=== PATIENT | male | born 1990 | race Caucasian/White ===

== ENCOUNTER 2018-11-26 10:27 | Emergency (ER) | payer OTHER ==
[2018-11-26] MEDS ORDERED: Pepcid 20 MG VIAL IV ONE ×2 (10:49→10:51)
[2018-11-26] MEDS ORDERED: Sodium Chloride 0.9% 1000 ML 1,000 ML IV STA (10:49)
[2018-11-26] MEDS ORDERED: PROTONIX 40 MG IV IV ONE ×2 (10:49→10:50)
[2018-11-26] MEDS ORDERED: Zofran 4 MG/2 ML VIAL ONE (10:50)
[2018-11-26] MEDS ORDERED: Sodium Chloride 0.9% 1000 ML 1,000 ML ONE (10:50)
[2018-11-26] MEDS ORDERED: APRESOLINE 20 MG/ML INJ IV ONE (10:51)
[2018-11-26] MEDS ORDERED: Zofran 4 MG/2 ML VIAL IV ONE (10:51)
[2018-11-26 11:03] LABS: BASOPHIL % 0.2 % (0.0-0.4); Basophil (Absolute #) 0.03 (0-0.4); Eosinophil % 0.2 % (0.00-5.0); Eosinophil (Absolute #) 0.03 (0-0.5); Granulocyte Absolute (ANC) 11.46 (1.4-6.9); Hematocrit 44.2 % (42-50); Hemoglobin 15.1 gm/dl (12.5-18.0); Lymphocyte (Absolute #) 1.41 (1.0-4.6); Lymphocytes % 10.6 % (24.0-44.0); Mean Cell Volume 93.4 fl (78-100); Mean Corpuscular Hemoglobin 31.9 pg (26-32); Mean Corpuscular Hgb Concent. 34.2 g/dl (32-36); Mean Platelet Volume 9.7 fl (6-9.5); Platelet Count 346 K/mm3 (150-450); Red Blood Count 4.73 M/mm3 (4.1-5.6); Red Cell Distribution Width 12.6 % (11.5-14.0); White Blood Count 13.3 K/mm3 (4.0-10.5)
[2018-11-26 11:11] LABS: ALBUMIN 4.3 g/dL (3.5-5.0); ALKALINE PHOSPHATASE 97 U/L (38-126); ANION GAP 10.6 MEQ/L (5-15); BLOOD UREA NITROGEN 14 mg/dL (9-20); CHLORIDE 100 mmol/L (98-107); Calcium 9.5 mg/dL (8.4-10.2); Carbon Dioxide 34 mmol/L (22-30); Creatinine 1 0.91 mg/dL (0.66-1.25); Glucose 125 mg/dL (74-106); LIPASE 39 U/L (23-300); Potassium 3.8 mmol/L (3.5-5.1); SGOT/AST 33 U/L (17-59); SGPT/ALT 42 U/L (0-50); SODIUM 141 mmol/L (137-145); Total Protein 7.2 g/dL (6.3-8.2)
[2018-11-26 11:22] LABS: Amourphous Crystal FEW /HPF (NEGATIVE); Appearance CLOUDY (CLEAR); Bacteria RARE /HPF (NEGATIVE); Bilirubin NEGATIVE (NEGATIVE); Blood NEGATIVE Ery/ul (0-5); Glucose NEGATIVE (NEGATIVE); Ketones NEGATIVE (NEGATIVE); Leukocyte Esterase NEGATIVE (NEGATIVE); Mucus SLIGHT /HPF (NEGATIVE); Nitrite NEGATIVE (NEGATIVE); Protein,Urine Dip NEGATIVE (Negative); Specific Gravity 1.015 (1.005-1.025); Urobilinogen NEGATIVE mg/dL (0-1)
[2018-11-26 11:36] LABS: Barbiturate,Urine NEGATIVE (NEGATIVE); Benzodiazepine,Urine NEGATIVE (NEGATIVE); Cocaine,Urine NEGATIVE (NEGATIVE); Methadone,Urine NEGATIVE (NEGATIVE); Opiate,Urine NEGATIVE (NEGATIVE); PCP,Urine NEGATIVE (NEGATIVE); THC,Urine NEGATIVE (NEGATIVE)
[2018-11-26] MEDS ORDERED: APRESOLINE 20 MG/ML INJ ONE (11:41)
[2018-11-26 11:59] VITALS: BP 174/100; O2SAT 98
[2018-11-26 12:12] LABS: Amphetamine,Urine POSITIVE (NEGATIVE)
[2018-11-26 12:51] VITALS: PULSE 76
--- NOTE | 2018-11-26 12:58 | XRAY ---
Indication: Abdomen pain and vomiting. Multiple contiguous axial images obtained through the abdomen and pelvis without contrast as ordered. Comparison: None Study slightly degraded by respiration artifact even with repeat CT. Lung bases are clear. Heart is not enlarged. Noncontrasted stomach and bowel loops appear nonobstructed. Normal appendix. No free fluid/air. Remaining liver, gallbladder, pancreas, spleen, adrenal glands, kidneys, ureters, bladder, and aorta appear unremarkable for noncontrast exam. Osseous structures intact. No ventral or inguinal hernias. Impression: 1. Mild respiration artifact. 2. CT abdomen/pelvis without contrast exam is grossly negative. CT DI 10.73
--- NOTE | 2018-11-26 13:04 | ERPHSYRPT ---
- History of Present Illness Historian: patient Exam Limitations: no limitations Patient Subjective Stated Complaint: Pt states "I ate penitentiary food yesterday and at 2 am this morning I started to have pain in my belly. I really hurt now." Triage Nursing Assessment: Pt presented through the front, alert and oriented X 3, skin pwd. Pt ambulates with an hunched over gait holding his abdomen. Pt grunting and moaing. Physician History: Pt is a 28 y/o male that presented to the ED with severe abdominal pain and vomiting. Pt denies diarrhea. Pt denies F/C/S. He states, no istory of HTN and no meds that he s taking on a regular basis. Pt denies SOB or cough. No dysuria, frequency and urgency. Pt is now on "work-release", and he is eating in penitentiary. Since he started having "penitentiary-food" he developed abdominal pain and vomiting. Timing/Duration: today Activities at Onset: none Quality: cramping, sharpness, stabbing Abdominal Pain Onset Location: epigastric Pain Radiation: no radiation Severity of Pain-Max: severe Severity of Pain-Current: moderate Modifying Factors: Improves With: nothing Associated Symptoms: vomiting Previous symptoms: no prior history Allergies/Adverse Reactions: No Known Drug Allergies Allergy (Verified 08/28/15 08:59) Hx Tetanus, Diphtheria Vaccination/Date Given: Yes Hx Influenza Vaccination/Date Given: No Hx Pneumococcal Vaccination/Date Given: No Immunizations Up to Date: Yes - Review of Systems Constitutional: No Fever, No Chills Eyes: No Symptoms Ears, Nose, & Throat: No Symptoms Respiratory: No Cough, No Dyspnea Cardiac: No Chest Pain, No Edema, No Syncope Abdominal/Gastrointestinal: Abdominal Pain (epigastric), Vomiting Genitourinary Symptoms: No Dysuria Musculoskeletal: No Back Pain, No Neck Pain Neurological: No Dizziness, No Focal Weakness, No Sensory Changes - Past Medical History Pertinent Past Medical History: Yes Other Medical History: ADHD - Past Surgical History Past Surgical History: Yes Other Surgical History: FACIAL SURG FROM [facility] - Social History Smoking Status: Current every day smoker How long have you smoked: years Exposure to second hand smoke: Yes Drug Use: none Patient Lives Alone: No - Nursing Vital Signs Nursing Vital Signs: Initial Vital Signs Temperature 98.0 F 11/26/18 10:31 Pulse Rate 58 L 11/26/18 10:31 Respiratory Rate 18 11/26/18 10:31 Blood Pressure 188/101 11/26/18 10:31 O2 Sat by Pulse Oximetry 99 11/26/18 10:31 Pain Scale Pain Intensity 4 - Physical Exam General Appearance: moderate distress Eye Exam: PERRL/EOMI, eyes nml inspection Ears, Nose, Throat Exam: normal ENT inspection, pharynx normal, moist mucous membranes Neck Exam: normal inspection, non-tender, supple, full range of motion Respiratory Exam: normal breath sounds, lungs clear, No respiratory distress Cardiovascular Exam: regular rate/rhythm, normal heart sounds Gastrointestinal/Abdomen Exam: soft, tenderness (epigastric), No mass Back Exam: normal inspection, normal range of motion, No CVA tenderness, No vertebral tenderness Extremity Exam: normal inspection, normal range of motion, pelvis stable Neurologic Exam: alert, oriented x 3, cooperative, normal mood/affect, nml cerebellar function, sensation nml, No motor deficits SpO2: 98 - Course Nursing assessment & vital signs reviewed: Yes - CT Exams Abdomen/Pelvis CT Interpretation: Negative (exam is grossly negative) Ordered Tests: Active Orders 24 hr Category Date Time Status ABDOMEN AND PELVIS W/0 CONTRAS [CT] Stat Exams 11/26/18 12:08 Completed CBC W DIFF Stat Lab 11/26/18 10:59 Completed CMP Stat Lab 11/26/18 10:59 Completed LIPASE Stat Lab 11/26/18 10:59 Completed Lactic Acid Stat Lab 11/26/18 10:49 Completed UA W/RFX UR CULTURE Stat Lab 11/26/18 10:49 Completed Urine Triage Profile Stat Lab 11/26/18 10:49 Completed Medication Summary Discontinued Medications Generic Name Dose Route Start Last Admin Trade Name Alvarez PRN Reason Stop Dose Admin Famotidine 40 mg 11/26/18 10:49 11/26/18 11:00 Pepcid 20 Mg Vial IV 11/26/18 10:50 40 mg STAT ONE Administration Famotidine Confirm 11/26/18 10:51 Pepcid 20 Mg Vial Administered 11/26/18 10:52 Dose 40 mg IV .STK-MED ONE Hydralazine HCl 10 mg 11/26/18 10:51 11/26/18 11:42 Apresoline 20 Mg/Ml Inj IV 11/26/18 10:52 10 mg STAT ONE Administration Hydralazine HCl Confirm 11/26/18 11:41 Apresoline 20 Mg/Ml Inj Administered 11/26/18 11:42 Dose 20 mg .ROUTE .STK-MED ONE Sodium Chloride 1,000 mls @ 999 mls/hr 11/26/18 10:49 11/26/18 12:37 Sodium Chloride 0.9% 1000 Ml IV 11/26/18 11:49 Infused .Q1H1M STA Infusion Sodium Chloride Confirm 11/26/18 10:50 Sodium Chloride 0.9% 1000 Ml Administered 11/26/18 10:51 Dose 1,000 mls @ ud .ROUTE .STK-MED ONE Ondansetron HCl 4 mg 11/26/18 10:51 11/26/18 11:00 Zofran 4 Mg/2 Ml Vial IV 11/26/18 10:52 4 mg STAT ONE Administration Ondansetron HCl Confirm 11/26/18 10:50 Zofran 4 Mg/2 Ml Vial Administered 11/26/18 10:51 Dose 4 mg .ROUTE .STK-MED ONE Pantoprazole Sodium 40 mg 11/26/18 10:49 11/26/18 11:00 Protonix 40 Mg Iv IV 11/26/18 10:50 40 mg STAT ONE Administration Pantoprazole Sodium Confirm 11/26/18 10:50 Protonix 40 Mg Iv Administered 11/26/18 10:51 Dose 40 mg IV .STK-MED ONE Lab/Rad Data: Laboratory Result Diagrams 11/26/18 10:59 11/26/18 10:59 Laboratory Results 11/26/18 11/26/18 11/26/18 Range/Units 10:59 10:59 10:49 WBC 13.3 H (4.0-10.5) K/mm3 RBC 4.73 (4.1-5.6) M/mm3 Hgb 15.1 (12.5-18.0) gm/dl Hct 44.2 (42-50) % MCV 93.4 (78-100) fl MCH 31.9 (26-32) pg MCHC 34.2 (32-36) g/dl RDW 12.6 (11.5-14.0) % Plt Count 346 (150-450) K/mm3 MPV 9.7 H (6-9.5) fl Gran % 86.0 H (36.0-66.0) % Eos # (Auto) 0.03 (0-0.5) Absolute Lymphs (auto) 1.41 (1.0-4.6) Absolute Monos (auto) 0.40 (0.0-1.3) Lymphocytes % 10.6 L (24.0-44.0) % Monocytes % 3.0 (0.0-12.0) % Eosinophils % 0.2 (0.00-5.0) % Basophils % 0.2 (0.0-0.4) % Absolute Granulocytes 11.46 H (1.4-6.9) Basophils # 0.03 (0-0.4) Sodium 141 (137-145) mmol/L Potassium 3.8 (3.5-5.1) mmol/L Chloride 100 (98-107) mmol/L Carbon Dioxide 34 H (22-30) mmol/L Anion Gap 10.6 (5-15) MEQ/L BUN 14 (9-20) mg/dL Creatinine 0.91 (0.66-1.25) mg/dL Estimated GFR > 60.0 ML/MIN Glucose 125 H (74-106) mg/dL Lactic Acid (0.4-2.0) Calcium 9.5 (8.4-10.2) mg/dL Total Bilirubin 0.30 (0.2-1.3) mg/dL AST 33 (17-59) U/L ALT 42 (0-50) U/L Alkaline Phosphatase 97 (38-126) U/L Serum Total Protein 7.2 (6.3-8.2) g/dL Albumin 4.3 (3.5-5.0) g/dL Lipase 39 (23-300) U/L Urine Color (YELLOW) Urine Appearance (CLEAR) Urine pH (5-6) Ur Specific [place] (1.005-1.025) Urine Protein (Negative) Urine Ketones (NEGATIVE) Urine Blood (0-5) Nii/ul Urine Nitrite (NEGATIVE) Urine Bilirubin (NEGATIVE) Urine Urobilinogen (0-1) mg/dL Ur Leukocyte Esterase (NEGATIVE) Urine WBC (Auto) (0-5) /HPF Urine RBC (Auto) (0-2) /HPF U Epithel Cells (Auto) (FEW) /HPF Urine Bacteria (Auto) (NEGATIVE) /HPF Amorphous Crystals (NEGATIVE) /HPF Urine Mucus (Auto) (NEGATIVE) /HPF Urine Culture Reflexed (NO) Urine Glucose (NEGATIVE) mg/dL Urine Opiates Level NEGATIVE (NEGATIVE) Ur Methadone NEGATIVE (NEGATIVE) Urine Barbiturates NEGATIVE (NEGATIVE) Ur Phencyclidine (PCP) NEGATIVE (NEGATIVE) Urine Amphetamine POSITIVE (NEGATIVE) U Benzodiazepine Level NEGATIVE (NEGATIVE) Urine Cocaine NEGATIVE (NEGATIVE) Urine Marijuana (THC) NEGATIVE (NEGATIVE) 11/26/18 11/26/18 Range/Units 10:49 10:49 WBC (4.0-10.5) K/mm3 RBC (4.1-5.6) M/mm3 Hgb (12.5-18.0) gm/dl Hct (42-50) % MCV (78-100) fl MCH (26-32) pg MCHC (32-36) g/dl RDW (11.5-14.0) % Plt Count (150-450) K/mm3 MPV (6-9.5) fl Gran % (36.0-66.0) % Eos # (Auto) (0-0.5) Absolute Lymphs (auto) (1.0-4.6) Absolute Monos (auto) (0.0-1.3) Lymphocytes % (24.0-44.0) % Monocytes % (0.0-12.0) % Eosinophils % (0.00-5.0) % Basophils % (0.0-0.4) % Absolute Granulocytes (1.4-6.9) Basophils # (0-0.4) Sodium (137-145) mmol/L Potassium (3.5-5.1) mmol/L Chloride (98-107) mmol/L Carbon Dioxide (22-30) mmol/L Anion Gap (5-15) MEQ/L BUN (9-20) mg/dL Creatinine (0.66-1.25) mg/dL Estimated GFR ML/MIN Glucose (74-106) mg/dL Lactic Acid 1.1 (0.4-2.0) Calcium (8.4-10.2) mg/dL Total Bilirubin (0.2-1.3) mg/dL AST (17-59) U/L ALT (0-50) U/L Alkaline Phosphatase (38-126) U/L Serum Total Protein (6.3-8.2) g/dL Albumin (3.5-5.0) g/dL Lipase (23-300) U/L Urine Color YELLOW (YELLOW) Urine Appearance CLOUDY (CLEAR) Urine pH 8.0 (5-6) Ur Specific [place] 1.015 (1.005-1.025) Urine Protein NEGATIVE (Negative) Urine Ketones NEGATIVE (NEGATIVE) Urine Blood NEGATIVE (0-5) Nii/ul Urine Nitrite NEGATIVE (NEGATIVE) Urine Bilirubin NEGATIVE (NEGATIVE) Urine Urobilinogen NEGATIVE (0-1) mg/dL Ur Leukocyte Esterase NEGATIVE (NEGATIVE) Urine WBC (Auto) NONE (0-5) /HPF Urine RBC (Auto) NONE (0-2) /HPF U Epithel Cells (Auto) NONE (FEW) /HPF Urine Bacteria (Auto) RARE (NEGATIVE) /HPF Amorphous Crystals FEW (NEGATIVE) /HPF Urine Mucus (Auto) SLIGHT (NEGATIVE) /HPF Urine Culture Reflexed NO (NO) Urine Glucose NEGATIVE (NEGATIVE) mg/dL Urine Opiates Level (NEGATIVE) Ur Methadone (NEGATIVE) Urine Barbiturates (NEGATIVE) Ur Phencyclidine (PCP) (NEGATIVE) Urine Amphetamine (NEGATIVE) U Benzodiazepine Level (NEGATIVE) Urine Cocaine (NEGATIVE) Urine Marijuana (THC) (NEGATIVE) - Progress Progress: improved Progress Note: 11/26/18 13:05 Pt was seen and examined. He did get Protonix, Zofran and Pepcid IV. he had mild leukocytosis, but UA and CT of abdomen and pelvis were negative. Can have leukocytosis, secondary t vomiting and Amphetamine use. Pt did get Hydralazine IV for his HTN, that was also secondary to his Amphetamines use. Pt will be prescribed Protonix. He should avoid any recreational drug use. Pt should f/u with his PCP, if no improvement. Will see patient in: office Counseled pt/family regarding: need for follow-up - Departure Departure Disposition: Home Clinical Impression: Abdominal pain Condition: Stable Critical Care Time: No Referrals: DOCTOR,NO FAMILY [Primary Care Provider] - Additional Instructions: Take Protonix daily and avoid recreational drug use. F/U with PCP. Prescriptions: PANTOPRAZOLE 40 mg Tablet [Protonix 40MG Tablet] 40 mg PO QAM #30 tab
== END 2018-11-26 13:22 | disposition home or self-care (01) ==
LOC: ED 10:27
DX: R10.9 Unspecified abdominal pain (principal)
CPT/HCPCS: 36000; 36415; 74176; 80053; 80307; 81001; 83605; 83690; 85025; 96360; 96374; 96375; 99284; J0360; J2405

== ENCOUNTER 2022-07-27 17:46 | Emergency (ER) | payer OTHER ==
--- NOTE | 2022-07-27 17:54 | ERPHSYRPT ---
- History of Present Illness Time Seen by Provider: 07/27/22 17:54 Source: patient Exam Limitations: no limitations Physician History: This 32-year-old white male patient has no known drug allergies and takes no medications chronically. He does smoke cigarettes daily. He has had 2-day history of right back molar pain that is worsened. He states that he cannot get into see a dentist until about 2 weeks from today. He is feeling the pain in his right lower jaw and into his right ear. He has not had a fever. Timing/Duration: day(s) (2 days), worse Severity: moderate Associated Symptoms: denies symptoms Allergies/Adverse Reactions: No Known Drug Allergies Allergy (Verified 07/27/22 18:01) Hx Tetanus, Diphtheria Vaccination/Date Given: Yes Hx Influenza Vaccination/Date Given: No Hx Pneumococcal Vaccination/Date Given: No Travel Risk - International Travel Have you traveled outside of the country in past 3 weeks: No - Coronavirus Screening Are you exhibiting any of the following symptoms?: No Close contact with a COVID-19 positive Pt in past 14-21 Days: No - Review of Systems Constitutional: No Symptoms Eyes: No Symptoms Ears, Nose, & Throat: Other (Dental pain with fractured right posterior lower molars) Respiratory: No Symptoms Cardiac: No Symptoms Abdominal/Gastrointestinal: No Symptoms Genitourinary Symptoms: No Symptoms Musculoskeletal: No Symptoms Skin: No Symptoms Neurological: No Symptoms Psychological: No Symptoms Endocrine: No Symptoms Hematologic/Lymphatic: No Symptoms Immunological/Allergic: No Symptoms All Other Systems: Reviewed and Negative - Past Medical History Pertinent Past Medical History: Yes Other Medical History: ADHD - Past Surgical History Past Surgical History: Yes Other Surgical History: FACIAL SURG FROM [facility] - Social History Smoking Status: Current every day smoker How long have you smoked: years Exposure to second hand smoke: Yes Drug Use: none Patient Lives Alone: No - Nursing Vital Signs Nursing Vital Signs: Initial Vital Signs Temperature 97.9 F 07/27/22 17:55 Pulse Rate 95 H 07/27/22 17:55 Blood Pressure 139/98 07/27/22 17:55 O2 Sat by Pulse Oximetry 98 07/27/22 17:55 Pain Scale Pain Intensity 9 - Physical Exam General Appearance: no apparent distress, alert, anxiety Eye Exam: PERRL/EOMI, eyes nml inspection Ears, Nose, Throat Exam: moist mucous membranes, other (Generalized poor dentition with fractures of right posterior back molars) Neck Exam: normal inspection, non-tender, supple, full range of motion Respiratory Exam: airway intact, No chest tenderness, No respiratory distress Gastrointestinal/Abdomen Exam: No tenderness Rectal Exam: not done Back Exam: normal inspection, normal range of motion, No CVA tenderness Extremity Exam: normal inspection, normal range of motion, pelvis stable Neurologic Exam: alert, oriented x 3, cooperative, 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, normal mood/affect, nml cerebellar function, nml station & gait, sensation nml Skin Exam: normal color, warm, dry Lymphatic Exam: No adenopathy SpO2 Interpretation: normal O2 Delivery: Room Air - Course Nursing assessment & vital signs reviewed: Yes Ordered Tests: Medication Summary Discontinued Medications Generic Name Dose Route Start Last Admin Trade Name Freq PRN Reason Stop Dose Admin Oxycodone/Acetaminophen 2 tab 07/27/22 18:09 Oxycodone Hcl/Apap 5 Mg/325 Mg Tablet PO 07/27/22 18:10 SENT HOME W/ PATIENT STA - Progress Progress: unchanged Progress Note: 07/27/22 18:12 This patient's medical issue is 1 of low complexity. The level of complexity and the work-up is based on review of the patient's past medical history, medication list, drug allergy list, history of present illness and findings on examination. There is no lab or radiographic studies that needs to be performed in this patient. Physical exam shows obvious generalized poor dentition with dental infection and dental fractures of the molars in the area he is having pain. There is no abscess appreciated. There is no facial swelling. We will provide the patient with amoxicillin 500 mg orally now and to take home oxycodone 5/325 pills. Discharge plan is to have him take Tylenol and ibuprofen [id number] as well as any topical dental solution. In addition we will write for 10 days of amoxicillin 500 mg. He is to follow-up with a dentist for definitive care. Counseled pt/family regarding: diagnosis, need for follow-up Medical Desision Making - Discussion of managment Agreed on:: Treatment plan, need for follow-up - Diagnostic Testing Diagnostic test were ordered, analyzed, and reviewed by me: No - Risk of complications The pt has a mod risk of morbidity or mortality based on: Need for prescription drug management - Departure Departure Disposition: Home Clinical Impression: Fractured tooth, Dental infection Condition: Stable Critical Care Time: No Additional Instructions: Use Tylenol and ibuprofen for pain control. May add topical dental numbing solution [id number]. Follow-up with the dentist for definitive care. Take your antibiotics as prescribed. Forms: Work/School Release Form Prescriptions: Amoxicillin 500 mg Cap [Amoxil 500 mg] 500 mg PO TID #30 cap
[2022-07-27 18:02] VITALS: BP 139/98
[2022-07-27] MEDS ORDERED: AMOXIL 500 MG PO ONE (18:09)
[2022-07-27] MEDS ORDERED: PERCOCET TABLET 5/325MG PO STA (18:09)
[2022-07-27] MEDS ORDERED: PERCOCET TABLET 5/325MG ONE (18:32)
[2022-07-27] MEDS ORDERED: AMOXIL 500 MG ONE (18:32)
[2022-07-27 18:40] VITALS: PULSE 88; O2SAT 97
== END 2022-07-27 18:41 | disposition home or self-care (01) ==
LOC: ED 17:46
DX: K03.81 Cracked tooth (principal); K04.7 Periapical abscess without sinus; K08.89 Other specified disorders of teeth and supporting structures; Z72.0 Tobacco use
CPT/HCPCS: 99282; A9270-GY

== ENCOUNTER 2024-03-16 03:39 | Emergency (ER) | payer BC, OTHER ==
[2024-03-16 03:55] VITALS: TEMP 97.9
--- NOTE | 2024-03-16 04:14 | ERPHSYRPT ---
- History of Present Illness Source: patient Exam Limitations: no limitations Patient Subjective Stated Complaint: c/o of hypertension Triage Nursing Assessment: patient brought to ED by officer with c/o of hypertension. Patient stated he used to be a drug user and has been clean since he has been in snf. Patient states that he has recently started a BP medication 4 days ago and has felt dizzy, seeing spots, heartbeat behind his ears, and has just felt "off". Patient has also stated that he will occasionally get this sharp, stabbing pain on the left side of his chest, but it will quickly subside, gait steady, slightly hypertensive, skin w/n/d, pt doesn't appear to be in any distress at this time. Physician History: Patient had an episode of hypertension and what appears to be anxiety. He is pretty anxious and high strung person. He said he felt his heart beating had some tightness in his chest. It lasted just a few minutes. He felt much better. He says this does not happen too much before until he got incarcerated a few days ago. They noticed his blood pressure has been elevated around 150/90. They started him on amlodipine few days ago. He has not had it for 2 days. He said he is watching TV and felt a little bit of dizziness and is heart was racing. He did not have any syncope or pass out or anything like that. He said he could feel his pulse in his ears. It was not fast but it was bounding. He denies any chest pain consistent with angina. He did have some sharp pains in his left chest that lasted just a few seconds and resolved. He says he feels fine now. Allergies/Adverse Reactions: No Known Drug Allergies Allergy (Verified 03/16/24 03:54) Home Medications: Amlodipine Besylate 5 mg [Norvasc 5 mg] 5 mg PO DAILY 03/16/24 [History] Hx Tetanus, Diphtheria Vaccination/Date Given: Yes Hx Influenza Vaccination/Date Given: No Hx Pneumococcal Vaccination/Date Given: No Travel Risk - International Travel Have you traveled outside of the country in past 3 weeks: No - Emerging Infectious Disease Are you exhibiting symptoms associated with any current EIDs: No - Review of Systems Constitutional: No Symptoms Eyes: No Symptoms Respiratory: No Symptoms Abdominal/Gastrointestinal: No Symptoms - Past Medical History Pertinent Past Medical History: Yes Other Medical History: ADHD, hepatitis C - Past Surgical History Past Surgical History: Yes Other Surgical History: FACIAL SURG FROM [facility] - Social History Smoking Status: Former smoker How long have you smoked: years Exposure to second hand smoke: No Drug Use: methamphetamines, other Patient Lives Alone: No - Social Determinants of Health Will the patient participate in the screening: Declined to provide - Nursing Vital Signs Nursing Vital Signs: Initial Vital Signs Temperature 97.9 F 03/16/24 03:40 Pulse Rate 85 03/16/24 03:40 Respiratory Rate 18 03/16/24 03:40 Blood Pressure 152/105 03/16/24 03:40 O2 Sat by Pulse Oximetry 98 03/16/24 03:40 Pain Scale Pain Intensity 0 - Physical Exam General Appearance: no apparent distress Eye Exam: PERRL/EOMI Ears, Nose, Throat Exam: normal ENT inspection Respiratory Exam: No respiratory distress Cardiovascular Exam: regular rate/rhythm Neurologic Exam: alert, oriented x 3, 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 He is asymptomatic. His EKG looked good. I am not go to work him up any further. His EKG was done by me as interpreted independently by me. I think that a beta-ying may be a more appropriate antihypertensive to maybe calm him down some.I gave him metoprolol here and sent a prescription home. 03/16/24 04:12 Medical Desision Making - Social Determinants of Health Pt's dx & treatment plan are significantly limited by SDOH: limited education Limited access to: transportation - Departure Departure Disposition: Home Clinical Impression: Anxiety, Hypertension Condition: Stable Critical Care Time: No Prescriptions: Metoprolol Succinate 50 mg [Toprol Xl 50 MG] 50 mg PO DAILY #30 tablet
[2024-03-16] MEDS ORDERED: Toprol-Xl 25MG Tablets ONE (04:15)
[2024-03-16] MEDS: Toprol-Xl 25MG Tablets PO ONE (04:16)
[2024-03-16 04:44] VITALS: BP 143/96; PULSE 81; RESP 18; O2SAT 96
[2024-03-16] MEDS ORDERED: Toprol Xl 50 MG PO SCH (10:00)
== END 2024-03-16 04:52 | disposition home or self-care (01) ==
LOC: ED 03:39
DX: I10 Essential (primary) hypertension (principal); R42 Dizziness and giddiness; F41.9 Anxiety disorder, unspecified
CPT/HCPCS: 93005; 99283; A9270-GY